=== PATIENT | male | born 1995 | race American Indian/Alaskan Native ===

== ENCOUNTER 2021-09-15 15:59 | Emergency (ER) | payer MEDICAID ==
[2021-09-15 16:16] VITALS: BP 124/78
== END 2021-09-16 05:11 | disposition left against medical advice (07) ==
LOC: ED 15:59
DX: Z00.00 Encounter for general adult medical examination without abnormal findings (principal); Z53.21 Procedure and treatment not carried out due to patient leaving prior to being seen by health care provider

== ENCOUNTER 2021-09-17 01:34 | Emergency (ER) | payer MEDICAID ==
[2021-09-17 02:52] LABS: BUN/Creatinine Ratio 11; Basophils # (Auto) 0.1 K/mm3 (0.0-0.1); Blood Urea Nitrogen 11 mg/dL (9-20); Calcium 9.4 mg/dL (8.4-10.2); Eosinophils % (Auto) 0.3 % (0.0-4.3); Hematocrit 46.1 % (35.5-45.6); Hemoglobin 15.2 gm/dl (11.8-15.2); Hemolysis Index 7; Lymphocytes # (Auto) 1.9 K/mm3 (1.2-5.4); Lymphocytes % (Auto) 20.1 % (13.4-35.0); Mean Corpuscular HGB Conc 33 % (32-34); Mean Corpuscular Volume 87 fl (84-94); Monocytes # (Auto) 1.1 K/mm3 (0.0-0.8); Monocytes % (Auto) 11.8 % (0.0-7.3); Platelet Count 235 K/mm3 (140-440); Red Blood Count 5.32 M/mm3 (3.65-5.03); Red Cell Distribution Width 12.9 % (13.2-15.2)
--- NOTE | 2021-09-17 04:51 | Emergency Department Report ---
ED Psych HPI - General Chief Complaint: Psych Stated Complaint: MH Time Seen by Provider: 09/17/21 02:05 Source: patient Mode of arrival: Ambulatory - History of Present Illness Initial Comments: Patient is a 26-year-old male brought in by EMS for mental health evaluation after being found wandering in someone's yard reportedly. He reportedly has mental delay of some sort and was seen here a few days ago and discharged. Unable to obtain report at this time. He denies any homicidal or suicidal ideations. Denies auditory or visual hallucinations. - Related Data Allergies Allergy/AdvReac Type Severity Reaction Status Date / Time No Known Allergies Allergy Unverified 09/15/21 16:16 ED Review of Systems ROS: Stated complaint: MH Other details as noted in HPI Comment: All other systems reviewed and negative Constitutional: denies: chills, fever Respiratory: denies: cough, shortness of breath, wheezing Cardiovascular: denies: chest pain, palpitations Skin: denies: rash, lesions Neurological: denies: headache, weakness, paresthesias Psychiatric: denies: auditory hallucinations, visual hallucinations, homicidal thoughts, suicidal thoughts ED Past Medical Hx - Past Medical History Previous Medical History?: Yes Hx Psychiatric Treatment: Yes - Surgical History Past Surgical History?: No - Social History Smoking Status: Current Every Day Smoker Substance Use Type: Marijuana ED Physical Exam - General Limitations: No Limitations General appearance: alert, in no apparent distress - Head Head exam: Present: atraumatic, normocephalic - Respiratory Respiratory exam: Present: normal lung sounds bilaterally. Absent: respiratory distress, wheezes - Cardiovascular Cardiovascular Exam: Present: regular rate, normal rhythm, normal heart sounds - GI/Abdominal GI/Abdominal exam: Present: soft. Absent: distended, tenderness - Neurological Exam Neurological exam: Present: alert, oriented X3 - Psychiatric Psychiatric exam: Present: normal affect, normal mood - Skin Skin exam: Present: warm, dry, intact, normal color ED Course Vital Signs 09/17/21 01:48 Temperature 98 F Pulse Rate 95 H Respiratory 18 Rate Blood Pressure 126/84 O2 Sat by Pulse 98 Oximetry ED Medical Decision Making - Lab Data Result diagrams: 09/17/21 02:10 09/17/21 02:10 - Medical Decision Making CBC, CMP, serum salicylates and acetaminophen unremarkable. UDS, UA and mental health assessment pending. Critical care attestation.: If time is entered above; I have spent that time in minutes in the direct care of this critically ill patient, excluding procedure time. ED Disposition Clinical Impression: Encounter for psychiatric assessment Disposition: 30 STILL A PATIENT Is pt being admited?: No Condition: Stable
--- NOTE | 2021-09-17 09:43 | Consultation ---
History of Present Illness - Reason for Consult Consult date: 09/17/21 Reason for consult: wandering in yard - History of Present Psychiatric Illness HPI: Patient is a 26-year-old male brought in by EMS for mental health evaluation after being found wandering in someone's yard reportedly. He reportedly has mental delay of some sort and was seen here a few days ago and discharged. Unable to obtain report at this time. He denies any homicidal or suicidal ideations. Denies auditory or visual hallucinations. The patient is a 26y/o male patient brought to the ER after being found wandering in someone's yard. I'm unable to obtain any information from this patient. He does not awaken to speak to me after calling his name serval times, and tactile stimulation. He arouses briefly but drifts back out. Will recommend inpatient psychiatric treatment for now being that I am unable to assess this patient's risk mental health status to see if he is at risk for self harm. PAST PSYCHIATRIC HISTORY Unable to obtain PAST MEDICAL HISTORY: None reported Family Psychiatric History: None reported or documented SOCIAL HISTORY Unable to obtain REVIEW OF SYSTEMS Unable to obtain MENTAL STATUS EXAMINATION Unable to obtain Assessment and Plan Delusional Disorder Treatment Plan 1013 Trazodone 50mg po qhs Medical: per primary Sitter: Defer to primary Disposition: Recommend acute psychiatric inpatient treatment Will follow. Thanks Case staffed with Dr. Bond Medications and Allergies Allergies Allergy/AdvReac Type Severity Reaction Status Date / Time No Known Allergies Allergy Unverified 09/15/21 16:16 Mental Status Exam - Vital signs Last Vital Signs Temp 98 F 09/17/21 01:48 Pulse 95 H 09/17/21 01:48 Resp 18 09/17/21 01:48 BP 126/84 09/17/21 01:48 Pulse Ox 98 09/17/21 01:48 Results Result Diagrams: 09/17/21 02:10 09/17/21 02:10 Abnormal lab results 09/17/21 09/17/21 09/17/21 Range/Units 02:10 02:10 02:10 RBC 5.32 H (3.65-5.03) M/mm3 Hct 46.1 H (35.5-45.6) % RDW 12.9 L (13.2-15.2) % [place] % (Auto) 11.8 H (0.0-7.3) % [place] # (Auto) 1.1 H (0.0-0.8) K/mm3 Salicylates < 0.3 L (2.8-20.0) mg/dL Acetaminophen 5.0 L (10.0-30.0) ug/mL All other labs normal.
--- NOTE | 2021-09-17 11:57 | Event Note ---
Date: 09/17/21 Mr. Calzada was seen and examined this morning but he refused to speak or talk. Patient had his head covered with white blanket. I asked him several times to uncover his head but he did not. Patient was seen and evaluated by psychiatrist this morning with the same report. Patient was initially seen by overnight physician when he was brought in by EMS for mental state evaluation after he was picked up while wondering in someone's yard. No reports of any issues by the nursing team.
[2021-09-17] MEDS ORDERED: traZODone 50 MG TAB PO SCH (22:00)
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
[2021-09-18 10:38] VITALS: BP 109/72
== END 2021-09-18 10:37 | disposition home or self-care (01) ==
LOC: ED 01:34
DX: Z04.6 Encounter for general psychiatric examination, requested by authority (principal); F17.200 Nicotine dependence, unspecified, uncomplicated; F12.90 Cannabis use, unspecified, uncomplicated; Z79.899 Other long term (current) drug therapy
CPT/HCPCS: 36415; 80048; 80320; 85025; 99284; G0480